=== PATIENT | male | born 1990 | race Two or more races ===

== ENCOUNTER 2019-08-03 17:36 | Emergency (ER) | payer SELFPAY ==
[~2019-08-03] VITALS: Ht 175.3 cm; Wt 84.0 kg
[2019-08-03 21:22] VITALS: BP 135/72
== END 2019-08-03 21:22 | disposition home or self-care (01) ==
LOC: ER 17:36
DX: F16.159 Hallucinogen abuse with hallucinogen-induced psychotic disorder, unspecified (principal); R03.0 Elevated blood-pressure reading, without diagnosis of hypertension
CPT/HCPCS: 99283

== ENCOUNTER 2022-03-30 19:57 | Emergency (ER) | payer SELFPAY ==
[~2022-03-30] VITALS: Ht 175.3 cm; Wt 78.0 kg
[2022-03-30] MEDS ORDERED: ONDANSETRON 4MG ODT PO STA (20:18)
[2022-03-30] MEDS ORDERED: ONDA4TAB50 MT (21:13)
[2022-03-30 21:20] VITALS: BP 145/82
== END 2022-03-30 21:20 | disposition home or self-care (01) ==
LOC: ER 19:57
DX: T65.91XA Toxic effect of unspecified substance, accidental (unintentional), initial encounter (principal); Y92.89 Other specified places as the place of occurrence of the external cause; R11.0 Nausea
CPT/HCPCS: 99283; Q0162

== ENCOUNTER 2023-03-02 14:27 | Emergency (ER) | payer SELFPAY ==
[~2023-03-02] VITALS: Ht 177.8 cm; Wt 91.0 kg
[~2023-03-02 14:27] MED LIST: ONDA4TAB50 MT
[2023-03-02 14:53] VITALS: BP 119/49; PULSE 76; RESP 16; TEMP 98.9; O2SAT 100
== END 2023-03-02 16:24 | disposition home or self-care (01) ==
LOC: ER 14:38
DX: T30.0 Burn of unspecified body region, unspecified degree (principal); X08.8XXA Exposure to other specified smoke, fire and flames, initial encounter; Y93.89 Activity, other specified; Y92.89 Other specified places as the place of occurrence of the external cause; Y99.8 Other external cause status
CPT/HCPCS: 99281